=== PATIENT | female | born 1995 | race Caucasian/White ===

== ENCOUNTER 2018-07-11 12:31 | Emergency (ER) | payer OTHER, MEDICAID, SELFPAY ==
[2018-07-11 12:33] VITALS: BP 119/70; PULSE 113; RESP 18; TEMP 36.6; O2SAT 100; BMI 23.0
--- NOTE | 2018-07-11 12:54 | DI.US.S_ITS ---
PROCEDURE: US PELVIC COMPLETE INDICATIONS: POSITIVE TEST; PAIN; HISTORY RIGHT OVARIAN ECTOPIC TECHNIQUE: Real-time scanning was performed of the pelvic organs, with image documentation. Additional endovaginal scanning was necessary due to incomplete visualization of the adnexal and endometrial structures by transabdominal scanning. COMPARISON: None. FINDINGS: Transabdominal scanning: Limited scanning through the kidneys shows no hydronephrosis. There is free pelvic fluid in cul-de-sac. Endovaginal scanning: Uterus: Uterus is normal in size at 8.1 x 3.9 x 5.4 cm. The endometrium measures 11.2 mm in combined thickness. Ovaries: Right ovary measures 3.1 x 2.0 x 2.5 cm. There is a 2.6 x 1.4 x 1.6 cm complex mass within the right ovary. Left ovary measures 1.6 x 2.6 x 2.3 cm. IMPRESSION: 1. No intrauterine gestational sac is identified. 2. A 2.6 x 1.4 x 1.0 cm complex mass in the right ovary concerning for ectopic . A differential diagnosis is a hemorrhagic cyst or corpus luteal cyst. 3. Moderate free pelvic fluid. Dictated by: Theresa Andrade M.D. on 07/11/2018 at 15:03 Approved by: Theresa Andrade M.D. on 07/11/2018 at 15:08
[2018-07-11 13:45] VITALS: BP 127/70; PULSE 94; RESP 16; O2SAT 100
--- NOTE | 2018-07-11 14:00 | ED.ABDPAIN ---
HPI - Abdominal Pain <Socorro Shelby PA-C - Last Filed: 07/11/18 21:53> General Chief Complaint: Abdominal Pain Stated Complaint: pelvic pain Time Seen by Provider: 07/11/18 13:59 Source: patient Mode of arrival: EMS Limitations: no limitations History of Present Illness HPI narrative: This healthy female is [facility] to [facility] out ectopic . She states that she has had a history of 1 healthy and 1 previous ectopic . She states that she went to hospital on [place] earlier today due to pain in the right ovary area. She states that she has chronic ovarian pain intermittently. It is not cyclical. Typically she just lives with it and goes about her day, however she just found out she is (about 3 weeks, LMP 06/17), and given her history of ectopic , wanted to make sure that this is not a recurrent 1. She was found also to have a UTI and given an antibiotic to start. She denies any spotting or bleeding. She denies any vaginal discharge. She denies any pain currently. She denies any dysuria, frequency, or urgency. She has not had nausea or vomiting. She denies any fever, pain or swelling in the extremities, and she does not have any pelvic pain right now. She states that she mainly came in as a precaution after evaluation there so that she could have an ultrasound. Related Data Allergies Allergy/AdvReac Type Severity Reaction Status Date / Time Penicillins Allergy Verified 07/11/18 14:35 Review of Systems <Socorro Shelby PA-C - Last Filed: 07/11/18 21:53> Review of Systems All systems reviewed & are unremarkable except as noted in HPI and below Exam <Socorro Shelby PA-C - Last Filed: 07/11/18 21:53> Narrative Exam Narrative: GENERAL APPEARANCE: Patient sitting comfortably, in no distress. HEENT: PERRL, EOMI, no scleral icterus NECK: Supple LUNGS: Clear to auscultation bilaterally. HEART: Rate and rhythm regular, normal S1 and S2, no S3 or S4. ABDOMEN: Soft, nontender, nondistended, bowel sounds present x 4 quadrants, no masses palpable, no hepatosplenomegaly. EXTREMITIES: No edema, no cyanosis DERMATOLOGIC: No jaundice or exanthem NEUROLOGIC: Alert and oriented with normal speech and coordination Initial Vital Signs Initial Vital Signs: Vital Signs Temperature 97.9 F 07/11/18 12:33 Pulse Rate 113 H 07/11/18 12:33 Respiratory Rate 18 07/11/18 12:33 Blood Pressure 119/70 07/11/18 12:33 Pulse Oximetry 100 07/11/18 12:33 <Claritza Rahman DO - Last Filed: 07/15/18 07:31> Initial Vital Signs Initial Vital Signs: Vital Signs Temperature 97.9 F 07/11/18 12:33 Pulse Rate 113 H 07/11/18 12:33 Respiratory Rate 18 07/11/18 12:33 Blood Pressure 119/70 07/11/18 12:33 Pulse Oximetry 100 07/11/18 12:33 Course <Socorro Shelby PA-C - Last Filed: 07/11/18 21:53> Additional Information: Patient is currently asymptomatic. I spoke with Dr. Baron [employer] floorperson for OB, who advised given low HCG patient needs repeat labs and US in about 10 days (too early to tell whether nl IUP with a cyst vs ectopic). Patient was planning to follow at his clinic for current and agrees to call on Friday to schedule f/u. She will return over the weekend if any acutely worsening sx. Orders Ordered: Discontinued Medications Oxycodone/Acetaminophen (Percocet 5/325) 1 tab PO NOW ONE Stop: 07/11/18 14:03 Last Admin: 07/11/18 14:37 Dose: Vital Signs - 8 hr 07/11/18 14:30 07/11/18 15:30 07/11/18 16:24 Pulse Rate 95 H 94 H 90 Respiratory Rate 18 18 Blood Pressure 113/76 Blood Pressure [Left Arm] 103/63 104/56 L Pulse Oximetry 100 100 99 <Claritza Rahman DO - Last Filed: 07/15/18 07:31> Orders Ordered: Discontinued Medications Oxycodone/Acetaminophen (Percocet 5/325) 1 tab PO NOW ONE Stop: 07/11/18 14:03 Last Admin: 07/11/18 14:37 Dose: Vital Signs - 8 hr 07/11/18 14:30 07/11/18 15:30 07/11/18 16:24 Pulse Rate 95 H 94 H 90 Respiratory Rate 18 18 Blood Pressure 113/76 Blood Pressure [Left Arm] 103/63 104/56 L Pulse Oximetry 100 100 99 MDM - Abdominal Pain <Socorro Shelby PA-C - Last Filed: 07/11/18 21:53> Medical Records Attestation: I reviewed the patient's medical records. Labs from today: Quantitative beta HCG 103.4. CMP WNL, CBC WNL. Urinalysis: Yellow, clear, specific gravity 1.025, pH 5.5, trace leukocytes, negative nitrites, normal urobilinogen, 2+ protein, negative blood, ketones, bilirubin and glucose. 3-5 WBCs, no RBCs, 2+ bacteria Imaging Data pelvic US: Radiologist's impression: View Report History [address] [address] Ultrasound Report Signed Patient: Minerva Wheeler MR#: [id number] : 1995 Acct:[id number] Age/Sex: 23 / F Date of Service: 07/11/18 Loc: ED Accession Number: [id number] Procedure: US pelvic complete Ordering Provider: Claritza Rahman D.O. PROCEDURE: US PELVIC COMPLETE INDICATIONS: POSITIVE TEST; PAIN; HISTORY RIGHT OVARIAN ECTOPIC TECHNIQUE: Real-time scanning was performed of the pelvic organs, with image documentation. Additional endovaginal scanning was necessary due to incomplete visualization of the adnexal and endometrial structures by transabdominal scanning. COMPARISON: None. FINDINGS: Transabdominal scanning: Limited scanning through the kidneys shows no hydronephrosis. There is free pelvic fluid in cul-de-sac. Endovaginal scanning: Uterus: Uterus is normal in size at 8.1 x 3.9 x 5.4 cm. The endometrium measures 11.2 mm in combined thickness. Ovaries: Right ovary measures 3.1 x 2.0 x 2.5 cm. There is a 2.6 x 1.4 x 1.6 cm complex mass within the right ovary. Left ovary measures 1.6 x 2.6 x 2.3 cm. IMPRESSION: 1. No intrauterine gestational sac is identified. 2. A 2.6 x 1.4 x 1.0 cm complex mass in the right ovary concerning for ectopic . A differential diagnosis is a hemorrhagic cyst or corpus luteal cyst. 3. Moderate free pelvic fluid. Dictated by: Theresa Andrade M.D. on 07/11/2018 at 15:03 Approved by: Theresa Andrade M.D. on 07/11/2018 at 15:08 Discharge Plan Departure Patient Disposition: Home Clinical Impression: Ovarian mass, right, Discharge Date/Time: 07/11/18 16:24 Interventions: ED Discharge Assessment Last Done: 07/11/18 16:24 Instructions: DI for Urinary Tract Infection (UTI), DI for Abdominal Pain -- Early Activity Restrictions/Additional Instructions: Please start the antibiotic that you were prescribed for urinary infection. You can resume normal activity. Take Tylenol as needed for pain. Your ultrasound showed that you have some type of mass on your right ovary which could very well be a cyst. It is too early on your labwork and ultrasound to know whether you have a normal in the uterus, so you need to be monitored closely for another ectopic . I have talked with Dr. Baron today and he would like you to call his office on Friday to arrange for follow up so that they can monitor your labwork and repeat an ultrasound. You should return here sooner as we talked about if you have any acutely worsening symptoms such as severe pain, bleeding, fever or vomiting Referrals: Rigoberto Baron MD [Physician] - <Claritza Rahman DO - Last Filed: 07/15/18 07:31> Cosign ED Attending Coschanningature Attestation: I was immediately available in the department for consultation. This documentation has been reviewed and I agree with assessment and plan. Supervised by Claritza Rahman DO
--- NOTE | 2018-07-11 14:23 | ED_ITS ---
HPI - Abdominal Pain <Socorro Shelby PA-C - Last Filed: 07/11/18 21:53> General Chief Complaint: Abdominal Pain Stated Complaint: pelvic pain Time Seen by Provider: 07/11/18 13:59 Source: patient Mode of arrival: EMS Limitations: no limitations History of Present Illness HPI narrative: [facility] . She states that she has had a history of 1 healthy and 1 previous ectopic . She states that she went to hospital on [place] earlier today due to pain in the right ovary area. She states that she has chronic ovarian pain intermittently. It is not cyclical. Typically she just lives with it and goes about her day, however she just found out she is (about 3 weeks, LMP 06/17), and given her history of ectopic , wanted to make sure that this is not a recurrent 1. She was found also to have a UTI and given an antibiotic to start. She denies any spotting or bleeding. She denies any vaginal discharge. She denies any pain currently. She denies any dysuria, frequency, or urgency. She has not had nausea or vomiting. She denies any fever, pain or swelling in the extremities, and she does not have any pelvic pain right now. She states that she mainly came in as a precaution after evaluation there so that she could have an ultrasound. Related Data Allergies Allergy/AdvReac Type Severity Reaction Status Date / Time Penicillins Allergy Verified 07/11/18 14:35 Review of Systems <Socorro Shelby PA-C - Last Filed: 07/11/18 21:53> Review of Systems All systems reviewed & are unremarkable except as noted in HPI and below Exam <Socorro Shelby PA-C - Last Filed: 07/11/18 21:53> Narrative Exam Narrative: GENERAL APPEARANCE: Patient sitting comfortably, in no distress. HEENT: PERRL, EOMI, no scleral icterus NECK: Supple LUNGS: Clear to auscultation bilaterally. HEART: Rate and rhythm regular, normal S1 and S2, no S3 or S4. ABDOMEN: Soft, nontender, nondistended, bowel sounds present x 4 quadrants, no masses palpable, no hepatosplenomegaly. EXTREMITIES: No edema, no cyanosis DERMATOLOGIC: No jaundice or exanthem NEUROLOGIC: Alert and oriented with normal speech and coordination Initial Vital Signs Initial Vital Signs: Vital Signs Temperature 97.9 F 07/11/18 12:33 Pulse Rate 113 H 07/11/18 12:33 Respiratory Rate 18 07/11/18 12:33 Blood Pressure 119/70 07/11/18 12:33 Pulse Oximetry 100 07/11/18 12:33 <Claritza Rahman DO - Last Filed: 07/15/18 07:31> Initial Vital Signs Initial Vital Signs: Vital Signs Temperature 97.9 F 07/11/18 12:33 Pulse Rate 113 H 07/11/18 12:33 Respiratory Rate 18 07/11/18 12:33 Blood Pressure 119/70 07/11/18 12:33 Pulse Oximetry 100 07/11/18 12:33 Course <Socorro Shelby PA-C - Last Filed: 07/11/18 21:53> Additional Information: Patient is currently asymptomatic. I spoke with Dr. Baron federal mediation commissioner for OB, who advised given low HCG patient needs repeat labs and US in about 10 days (too early to tell whether nl IUP with a cyst vs ectopic). Patient was planning to follow at his clinic for current and agrees to call on Friday to schedule f/u. She will return over the weekend if any acutely worsening sx. Orders Ordered: Discontinued Medications Oxycodone/Acetaminophen (Percocet 5/325) 1 tab PO NOW ONE Stop: 07/11/18 14:03 Last Admin: 07/11/18 14:37 Dose: Vital Signs - 8 hr 07/11/18 14:30 07/11/18 15:30 07/11/18 16:24 Pulse Rate 95 H 94 H 90 Respiratory Rate 18 18 Blood Pressure 113/76 Blood Pressure [Left Arm] 103/63 104/56 L Pulse Oximetry 100 100 99 <Claritza Rahman DO - Last Filed: 07/15/18 07:31> Orders Ordered: Discontinued Medications Oxycodone/Acetaminophen (Percocet 5/325) 1 tab PO NOW ONE Stop: 07/11/18 14:03 Last Admin: 07/11/18 14:37 Dose: Vital Signs - 8 hr 07/11/18 14:30 07/11/18 15:30 07/11/18 16:24 Pulse Rate 95 H 94 H 90 Respiratory Rate 18 18 Blood Pressure 113/76 Blood Pressure [Left Arm] 103/63 104/56 L Pulse Oximetry 100 100 99 MDM - Abdominal Pain <Socorro Shelby PA-C - Last Filed: 07/11/18 21:53> Medical Records Attestation: I reviewed the patient's medical records. Labs from today: Quantitative beta HCG 103.4. CMP WNL, CBC WNL. Urinalysis: Yellow, clear, specific gravity 1.025, pH 5.5, trace leukocytes, negative nitrites, normal urobilinogen, 2+ protein, negative blood, ketones, bilirubin and glucose. 3-5 WBCs, no RBCs, 2+ bacteria Imaging Data pelvic US: Radiologist's impression: View Report History [address] [address] Ultrasound Report Signed Patient: Minerva Wheeler MR#: [id number] : 1995 Acct:[id number] Age/Sex: 23 / F Date of Service: 07/11/18 Loc: ED Accession Number: [id number] Procedure: US pelvic complete Ordering Provider: Claritza Rahman D.O. PROCEDURE: US PELVIC COMPLETE INDICATIONS: POSITIVE TEST; PAIN; HISTORY RIGHT OVARIAN ECTOPIC TECHNIQUE: Real-time scanning was performed of the pelvic organs, with image documentation. Additional endovaginal scanning was necessary due to incomplete visualization of the adnexal and endometrial structures by transabdominal scanning. COMPARISON: None. FINDINGS: Transabdominal scanning: Limited scanning through the kidneys shows no hydronephrosis. There is free pelvic fluid in cul-de-sac. Endovaginal scanning: Uterus: Uterus is normal in size at 8.1 x 3.9 x 5.4 cm. The endometrium measures 11.2 mm in combined thickness. Ovaries: Right ovary measures 3.1 x 2.0 x 2.5 cm. There is a 2.6 x 1.4 x 1.6 cm complex mass within the right ovary. Left ovary measures 1.6 x 2.6 x 2.3 cm. IMPRESSION: 1. No intrauterine gestational sac is identified. 2. A 2.6 x 1.4 x 1.0 cm complex mass in the right ovary concerning for ectopic . A differential diagnosis is a hemorrhagic cyst or corpus luteal cyst. 3. Moderate free pelvic fluid. Dictated by: Theresa Andrade M.D. on 07/11/2018 at 15:03 Approved by: Theresa Andrade M.D. on 07/11/2018 at 15:08 Discharge Plan Departure Patient Disposition: Home Clinical Impression: Ovarian mass, right, Discharge Date/Time: 07/11/18 16:24 Interventions: ED Discharge Assessment Last Done: 07/11/18 16:24 Instructions: DI for Urinary Tract Infection (UTI), DI for Abdominal Pain -- Early Activity Restrictions/Additional Instructions: Please start the antibiotic that you were prescribed for urinary infection. You can resume normal activity. Take Tylenol as needed for pain. Your ultrasound showed that you have some type of mass on your right ovary which could very well be a cyst. It is too early on your labwork and ultrasound to know whether you have a normal in the uterus, so you need to be monitored closely for another ectopic . I have talked with Dr. Baron today and he would like you to call his office on Friday to arrange for follow up so that they can monitor your labwork and repeat an ultrasound. You should return here sooner as we talked about if you have any acutely worsening symptoms such as severe pain, bleeding, fever or vomiting Referrals: Rigoberto Baron MD [Physician] - <Claritza Rahman DO - Last Filed: 07/15/18 07:31> Cosign ED Attending Coschanningature Attestation: I was immediately available in the department for consultation. This documentation has been reviewed and I agree with assessment and plan. Supervised by Claritza Rahman DO
[2018-07-11 14:30] VITALS: BP 103/63; PULSE 95; O2SAT 100
[2018-07-11 15:30] VITALS: BP 104/56; PULSE 94; RESP 18; O2SAT 100
[2018-07-11 16:24] VITALS: BP 113/76; PULSE 90; RESP 18; O2SAT 99
== END 2018-07-11 16:24 | disposition home or self-care (01) ==
PROVIDERS: Emergency Provider Internal Medicine
DX: O34.81 Maternal care for other abnormalities of pelvic organs, first trimester (principal); N83.9 Noninflammatory disorder of ovary, fallopian tube and broad ligament, unspecified; Z3A.01 Less than 8 weeks gestation of pregnancy
CPT/HCPCS: 76830; 76856; 99283; 99284

== ENCOUNTER → 2018-08-31 13:36 | Outpatient (CLI) | payer OTHER, MEDICAID, SELFPAY ==
[2018-08-31 14:30] LABS: Add Manual Diff / Slide Review NO; Basophils Percent Auto 0.3 % (0-2); Eosinophils Percent Auto 0.6 % (2-4); Hematocrit 37.3 % (36-46); Hemoglobin 12.8 g/dL (12.0-16.0); Lymphocytes Percent Auto 20.3 % (25-40); Mean Corpuscular HGB Conc 34.3 % (30-36); Mean Corpuscular Hemoglobin 29.5 PG (26-34); Monocytes Percent Auto 8.7 % (3-14); Neutrophils Absolute Auto 6800 /uL (3000-5900); Neutrophils Percent Auto 70.1 % (50-75); Platelet Count 276 X10^3/uL (150-400); Red Blood Cell Count 4.33 X10^6/uL (4.0-5.2); Red Cell Distribution Width 14.3 % (11.6-14.8); White Blood Cell Count 9.7 X10^3/uL (4.5-11.0)
[2018-08-31 14:41] LABS: Appearance Urine UA CLEAR; Bilirubin Urine UA NEGATIVE (NEGATIVE); Color Urine UA YELLOW; Glucose Urine UA NEGATIVE (Normal); Ketones Urine UA TRACE (NEGATIVE); Leukocyte Esterase Urine UA NEGATIVE (NEGATIVE); Nitrite Urine UA NEGATIVE (Negative); Occult Blood Urine UA NEGATIVE (Negative); Protein Urine UA NEGATIVE (Negative); Specific Gravity Urine UA 1.015 (1.000-1.035); Urobilinogen Urine UA 0.2 E.U./dL (0.2)
[2018-08-31 15:53] LABS: Hepatitis B Surface Antigen NEGATIVE s/c (NEGATIVE); Rubella Antibody IgG 54.7 IU/mL (>15)
[2018-08-31 16:11] LABS: HIV 1 and 2 Antibody NEGATIVE (NEGATIVE); Hep C Virus Ab w/Reflex Quant NEGATIVE s/c (NEGATIVE)
[2018-09-02 14:22] LABS: RPR Screen Nonreactive (Nonreactive)
[2018-09-04 12:54] LABS: HSV 2 IGG AB < 0.90 index (< 0.90); HSV1IGG 6.44 index (< 0.90)
== END ==
PROVIDERS: Visit Provider Specialist
DX: Z34.91 Encounter for supervision of normal pregnancy, unspecified, first trimester (principal)
CPT/HCPCS: 36415; 80055; 81003; 86695; 86696; 86703; 86787; 86803; 86850; 86900; 86901; 87086